=== PATIENT | female | born 1990 | race Caucasian/White ===

== ENCOUNTER 2019-10-21 22:22 | Emergency (ER) | payer OTHER ==
[~2019-10-21] VITALS: Ht 165.1 cm; Wt 52.2 kg
[~2019-10-21 22:22] MED LIST: ALBUTEROL INH; ALBUTEROL INHAL17 GM IH; KEFLEX500 M1 PO; LORTABELXR PO; MEDROL DOSPAK21 TAB PO; NAPROSYN500 MG PO; NORCO 5-325 TA1 EACH PO; PROMETHAZINE12.5 M1 PO; ULTRAM 50MG TAB50 MG PO; VIBRA-TABS100 MG PO; VYVANSE20 MG PO; WELLBUTRIN 75 M75 M1 PO
[2019-10-21 22:52] LABS: HEMATOCRIT 41.2 % (37.0-47.0); HEMOGLOBIN 14.5 gm/dL (12.0-15.0); MCH 31.8 pg (26.0-34.0); MCHC 35.1 g/dL (28.0-37.0); MCV 90.4 fL (80.0-100.0); MPV 7.3 fl. (7.2-11.1); RBC 4.55 mil/uL (4.20-5.00); RDW-CV 12.7 % (10.5-14.5); WBC 7.2 thou/uL (4.0-11.0)
[2019-10-21] MEDS ORDERED: REMERON 30 MG T30 MG PO (22:55)
[2019-10-21] MEDS ORDERED: HYDROXYZINE PAM25 M1 PO (22:55)
[2019-10-21 22:58] LABS: URINE BILIRUBIN NEGATIVE (Negative); URINE BLOOD NEGATIVE (Negative); URINE CLARITY CLEAR; URINE COLOR YELLOW; URINE GLUCOSE-RANDOM NEGATIVE (Negative); URINE KETONES NEGATIVE (Negative); URINE LEUKOCYTES TRACE (Negative); URINE NITRITE NEGATIVE (Negative); URINE PROTEIN NEGATIVE (Negative); URINE UROBILINOGEN 0.2 E.U./dl (0.2-1.0)
[2019-10-21 23:03] LABS: CALCIUM 8.7 mg/dL (8.5-10.1); CREATININE 0.9 mg/dL (0.6-1.3); POTASSIUM 3.7 mmol/L (3.5-5.1)
[2019-10-21 23:06] LABS: SQUAMOUS 4-10 Moderate /LPF (0-3); URINE WBC 6-15 Few /HPF (0-5)
[2019-10-21 23:07] LABS: BACTERIA >30 Many /HPF (None Seen); CASTS None Seen /LPF (None Seen); CRYSTALS None Seen /LPF (None Seen); MUCUS 0-3 Light strn/LPF (None Seen); URINE RBC 3-10 Few /HPF (0-2)
[2019-10-21 23:10] LABS: SALICYLATE < 2.8 mg/dL (2.8-20.0)
[2019-10-21 23:12] LABS: ACETAMINOPHEN < 2 ug/mL (10-30); ALCOHOL < 10 mg/dL (<10)
[2019-10-21 23:13] LABS: ALBUMIN 4.3 g/dL (3.4-5.0); TOTAL BILIRUBIN 0.3 mg/dL (<0.1-1.0); TOTAL PROTEIN 7.6 g/dL (6.4-8.2)
[2019-10-21 23:14] LABS: AMP/METHAMP Negative (Negative); BARBITURATES Negative (Negative); BENZODIAZEPINES Negative (Negative); COCAINE Negative (Negative); METHADONE Negative (Negative); OPIATES Negative (Negative); PCP Negative (Negative); THC Negative (Negative)
[2019-10-22 13:15] VITALS: BP 138/93
== END 2019-10-22 13:15 ==
LOC: M.ERS 22:22
PROVIDERS: Personal Emergency Response Attendant
DX: F32.9 Major depressive disorder, single episode, unspecified (principal); F60.0 Paranoid personality disorder; R45.851 Suicidal ideations; J45.909 Unspecified asthma, uncomplicated; F41.9 Anxiety disorder, unspecified; Z88.1 Allergy status to other antibiotic agents; Z88.2 Allergy status to sulfonamides; Z88.6 Allergy status to analgesic agent; Z88.8 Allergy status to other drugs, medicaments and biological substances